=== PATIENT | female | born 2000 | race Caucasian/White ===

== ENCOUNTER 2019-02-09 15:06 | Outpatient (CLI) | payer MEDICAID ==
[2019-02-10 08:30] LABS: HEPATITIS B SURFACE ANTIGEN NON-REACTIVE (NON-REACTIVE)
[2019-02-10 12:15] LABS: HEPATITIS C ANTIBODY NON-REACTIVE (NON-REACTIVE)
[2019-02-10 13:15] LABS: HIV AG/AB 4TH GEN NON-REACTIVE (NON-REACTIVE)
[2019-02-11 16:15] LABS: HSV 1 IGG TYPE SPECIFIC AB 8.25 index; HSV 2 IGG TYPE SPECIFIC AB 2.38 index
== END 2019-02-09 15:07 | disposition home or self-care (01) ==
LOC: LAB 15:06
PROVIDERS: ATTEND Nurse Practitioner Obstetrics & Gynecology
DX: Z11.3 Encounter for screening for infections with a predominantly sexual mode of transmission (principal)
CPT/HCPCS: 36415; 81599; 86592; 86695; 86696; 86803; 87340; 87389